=== PATIENT | male | born 1990 | race Caucasian/White ===

== ENCOUNTER 2018-09-15 21:53 | Emergency (ER) | payer MEDICAID ==
[~2018-09-15] VITALS: Ht 175.3 cm; Wt 90.7 kg
[2018-09-15 22:06] VITALS: Ht 175.3 cm; Wt 90.7 kg
[2018-09-15] MEDS ORDERED: KETOROLAC 60 MG INJ IM STA (22:29)
[2018-09-15] MEDS ORDERED: LORAZEPAM 2 MG INJ IM ONE (22:30)
[2018-09-15] MEDS ORDERED: DIAZ5TAB PO (22:37)
[2018-09-15] MEDS ORDERED: TRAM50TA2 PO (22:37)
--- NOTE | 2018-09-15 22:41 | ERD ---
ER Documentation Chief Complaint Chief Complaint L leg nerve pain after over-reaching yesterday. HPI This 20-year-old male comes in with a left back pain that radiates down his left leg. He said it started about 12 hours ago and got progressively worse. Denies any bowel or bladder anesthesia. Denies any urinary incontinence or retention. Denies fevers chills nausea vomiting. Denies any direct trauma. Denies any other current complaints. ROS All systems reviewed and are negative except as per history of present illness. Medications Home Meds Active Scripts Diazepam* (Valium*) 5 Mg Tablet, 5 MG PO Q8 PRN for MUSCLE SPASMS, #20 TAB Prov:OSMANI ANN. 09/15/18 Tramadol HCl (Tramadol HCl) 50 Mg Tablet, 50 MG PO Q4 PRN for PAIN, #20 TAB Prov:OSMANI ANN S. 09/15/18 Allergies Allergies: Coded Allergies: No Known Allergy (Unverified , 09/15/18) PMhx/Soc Medical and Surgical Hx: pt denies Medical Hx, pt denies Surgical Hx History of Surgery: No Anesthesia Reaction: No Hx Neurological Disorder: No Hx Respiratory Disorders: No Hx Cardiac Disorders: No Hx Psychiatric Problems: No Hx Miscellaneous Medical Probl: No Hx Alcohol Use: Yes (DAILY) Hx Substance Use: Yes (MARIJUANA) Hx Tobacco Use: No Smoking Status: Current every day smoker Physical Exam Vitals Vital Signs Date Temp Pulse Resp B/P (MAP) Pulse Ox O2 O2 Flow FiO2 Time Delivery Rate 09/15/18 97.3 96 18 126/60 95 22:06 (82) Physical Exam Const: No acute distress Head: Atraumatic Eyes: Normal Conjunctiva ENT: Normal External Ears, Nose and Mouth. Neck: Full range of motion. No meningismus. Resp: Clear to auscultation bilaterally Cardio: Regular rate and rhythm, no murmurs Abd: Soft, non tender, non distended. Normal bowel sounds Skin: No petechiae or rashes Back: No midline or flank tenderness Ext: No cyanosis, or edema Neur: Awake and alert Psych: Normal Mood and Affect Results 24 hrs Current Medications Medications Dose Sig/Alon Start Time Status Last (Trade) Ordered Route PRN Stop Time Admin Dose Reason Admin Ketorolac 60 mg ONCE STAT 09/15/18 DC Tromethamine IM 22:29 09/15/18 (Toradol) 22:30 Lorazepam 1 mg ONCE ONCE 09/15/18 DC (Ativan) IM 22:30 09/15/18 22:31 10 mg ONCE ONCE 09/15/18 Dexamethasone IM 23:00 09/15/18 (Decadron) 23:01 Procedures/MDM Medical decision making: Patient's musculoskeletal symptoms have stabilized while they have been evaluated in the department and are appropriate for outpatient work up. No evidence of cauda equina, cord compression, infiltrative, or infectious etiology. Departure Diagnosis: Primary Impression: Back pain with sciatica Condition: Stable Patient Instructions: Back Pain W/ Sciatica OSMANI ANN September 15, 2018 22:41
[2018-09-15] MEDS ORDERED: DEXAMETHASONE 10 MG/ML 1 ML INJ IM ONE (23:00)
[2018-09-15 23:30] VITALS: BP 114/65; PULSE 85; RESP 20
== END 2018-09-16 00:07 | disposition home or self-care (01) ==
LOC: FTE 21:53
DX: M54.42 Lumbago with sciatica, left side (principal); F17.210 Nicotine dependence, cigarettes, uncomplicated
CPT/HCPCS: 96372; J1100; J1885; J2060; Z7502